=== PATIENT | male | born 1955 | race Hispanic/Latino ===

== ENCOUNTER 2018-02-16 20:33 | Emergency (ER) | payer OTHER ==
[2018-02-16 20:41] VITALS: RESP 18; O2SAT 99
--- NOTE | 2018-02-16 21:32 | ED PDOC ---
HPI: Back Time Seen by Provider: 02/16/18 20:43 Chief Complaint (Nursing): Male Genitourinary Chief Complaint (Provider): Lower back pain History Per: Patient History/Exam Limitations: no limitations Onset/Duration Of Symptoms: Days (x3) Current Symptoms Are (Timing): Still Present Quality Of Discomfort: "Pain" Additional Complaint(s): 63 year old male with a history of congenital horseshoe kidney presents to the ED with lower back pain with pain radiating down his left leg. He denies numbness, tingling, urinary incontinence or retention. Patient reports he is able to ambulate but, pain is worse when he gets up and moves. He states he may have slept in an awkward position, such that it contributes to pain. PMD: none provided Past Medical History Reviewed: Historical Data, Nursing Documentation, Vital Signs Vital Signs: Last Vital Signs Temp 98.5 F 02/16/18 20:36 Pulse 70 02/16/18 20:36 Resp 18 02/16/18 20:36 BP 124/76 02/16/18 20:36 Pulse Ox 99 02/16/18 20:36 - Medical History PMH: Chronic Kidney Disease Other PMH: congential horseshoe kidney - Surgical History Other surgeries: bilateral hip resurfacing - Family History Family History: States: Unknown Family Hx - Social History Current smoker - smoking cessation education provided: No Ex-Smoker (has not smoked in the last 12 months): No Alcohol: None Drugs: Denies - Home Medications Home Medications: Ambulatory Orders Medication Instructions Recorded Cyclobenzaprine [Cyclobenzaprine 10 mg PO TID PRN #15 tab 02/16/18 HCl] Naproxen [Naprosyn] 500 mg PO Q12 #14 tab 02/16/18 - Allergies Allergies/Adverse Reactions: Allergies Allergy/AdvReac Type Severity Reaction Status Date / Time No Known Allergies Allergy Verified 02/16/18 20:36 Review of Systems ROS Statement: Except As Marked, All Systems Reviewed And Found Negative Musculoskeletal: Positive for: Back Pain (lower), Leg Pain (left) Physical Exam - Reviewed Nursing Documentation Reviewed: Yes Vital Signs Reviewed: Yes - Physical Exam Appears: Positive for: Uncomfortable Eye Exam: Positive for: Normal appearance Cardiovascular/Chest: Positive for: Regular Rate, Rhythm. Negative for: Murmur Respiratory: Positive for: Normal Breath Sounds. Negative for: Respiratory Distress Gastrointestinal/Abdominal: Positive for: Normal Exam, Soft. Negative for: Tenderness Extremity: Positive for: Other (Left leg raise 40 degrees, Right leg raise 60 degrees, mild left SI joint tenderness) Neurologic/Psych: Positive for: Alert, Oriented (x3) - Laboratory Results Result Diagrams: 02/16/18 21:39 02/16/18 21:39 - ECG O2 Sat by Pulse Oximetry: 99 (RA) Pulse Ox Interpretation: Normal Medical Decision Making Medical Decision Making: Initial Impression: 63 yo male with low back pain in setting of congenital horseshoe kidney Initial Plan: --urine --labs --trial of valium and toradol Patient reports mild improvement in symptoms. He was offered advanced imaging such as CT, but states he will follow up with PCP after taking course of NSAIDs and muscle relaxants as prescribed. He will follow up with PCP for possible physiotherapy referral as well. Return precuations provided to patient Dx Back Pain/Muscular Spasm Sytable Scribe Attestation: Documented by Yanet Choe, acting as a scribe for Edvin Arnett MD Provider Scribe Attestation: All medical record entries made by the Scribe were at my direction and personally dictated by me. I have reviewed the chart and agree that the record accurately reflects my personal performance of the history, physical exam, medical decision making, and the department course for this patient. I have also personally directed, reviewed, and agree with the discharge instructions and disposition. Disposition - Clinical Impression Clinical Impression: Back muscle spasm - Disposition Disposition: Routine/Home Disposition Time: 22:30 Condition: STABLE Prescriptions: Cyclobenzaprine [Cyclobenzaprine HCl] 10 mg PO TID PRN #15 tab PRN Reason: Muscle Pain Naproxen [Naprosyn] 500 mg PO Q12 #14 tab Instructions: Low Back Pain in Adults, Muscle Spasms (DC) Forms: [employer] (Samoan)
[2018-02-16 21:51] LABS: BASO # 0.1 K/uL (0.0-0.2); BASO % 0.6 % (0.0-2.0); EOS # 0.1 K/uL (0.0-0.7); HEMOGLOBIN 14.1 g/dL (12.0-18.0); LYMPH # 1.3 K/uL (1.0-4.3); LYMPH % 14.3 % (20.0-40.0); MEAN CELL VOLUME 85.8 fl (80.0-94.0); MEAN CORPUSCULAR HEMOGLOBIN 28.8 pg (27.0-31.0); MEAN CORPUSCULAR HGB CONC 33.6 g/dL (33.0-37.0); MEAN PLATELET VOLUME 8.9 fl (7.2-11.7); MONO # 0.8 K/uL (0.0-0.8); MONO % 8.6 % (0.0-10.0); NEUT # 6.8 K/uL (1.8-7.0); NEUT % 75.5 % (50.0-75.0); RBC 4.89 Mil/uL (4.40-5.90); RED CELL DISTRIBUTION WIDTH 14.1 % (11.5-14.5)
[2018-02-16 21:53] LABS: URINE BILIRUBIN NEGATIVE (NEGATIVE); URINE BLOOD NEGATIVE (NEGATIVE); URINE CLARITY CLEAR (Clear); URINE COLOR YELLOW (YELLOW); URINE GLUCOSE (UA) NEG (Normal); URINE LEUKOCYTE ESTERASE NEG Leu/uL (Negative); URINE PROTEIN NEGATIVE (NEGATIVE); URINE UROBILINOGEN 0.2-1.0 mg/dL (0.2-1.0)
[2018-02-16 21:59] LABS: ALB/GLOB RATIO 1.1 (1.0-2.1); ALBUMIN 3.6 g/dL (3.5-5.0); ALT/SGPT 21 U/L (21-72); AST/SGOT 24 U/L (17-59); BLOOD UREA NITROGEN 18 mg/dl (9-20); CALCIUM 9.2 mg/dL (8.4-10.2); GFR NON-AFRICAN AMERICAN > 60
[2018-02-16 22:44] VITALS: BP 129/64; PULSE 82; TEMP 97.7
== END 2018-02-16 22:58 | disposition home or self-care (01) ==
LOC: H.ER 20:33
DX: M62.830 Muscle spasm of back (principal)
CPT/HCPCS: 80053; 81003; 85025; 96374; 99285; J1885